=== PATIENT | male | born 1975 | race Caucasian/White ===

== ENCOUNTER 2018-02-16 08:11 | Emergency (ER) | payer OTHER ==
[~2018-02-16] VITALS: Ht 205.7 cm; Wt 141.1 kg
[2018-02-16 08:22] VITALS: BP 134/99
--- NOTE | 2018-02-16 08:25 | NUR ---
PT AMBULATES TO BED 2
--- NOTE | 2018-02-16 08:58 | NUR ---
DR ARIAS EVALUATING AT BEDSIDE
--- NOTE | 2018-02-16 09:02 | NUR ---
C/O LACERATION TO RIGHT AC. FULL THICKNESS WITH ADIPOSE TISSUE EXPOSED. CUT WHILE AT WORK LAST NIGHT ON A PIECE OF METAL. DENIES N/V/D; SKIN IS PINK/WARM/DRY; AAOX4 WITH EVEN AND STEADY GAIT; LUNGS CLEAR BL; HR EVEN AND REGULAR; PT DENIES ANY FEVER, CP, SOB, OR COUGH AT THIS TIME; PATIENT STATES PAIN OF 0/10 AT THIS TIME; VSS; PATIENT POSITIONED FOR COMFORT; HOB ELEVATED; BEDRAILS UP X2; BED DOWN. ER MD MADE AWARE OF PT STATUS.
[2018-02-16 09:18] VITALS: BP 134/85
--- NOTE | 2018-02-16 09:19 | NUR ---
Patient discharged with v/s stable. Written and verbal after care instructions given and explained. Patient verbalized understanding. Ambulatory with steady gait. All questions addressed prior to discharge. Advised to follow up with PMD.pT STATED HE WILL MAKE AN APPOINTMENT WITH PMD TODAY.
== END 2018-02-16 09:19 | disposition home or self-care (01) ==
LOC: MED 08:11
DX: S41.111A Laceration without foreign body of right upper arm, initial encounter (principal); Z88.0 Allergy status to penicillin; X58.XXXA Exposure to other specified factors, initial encounter; Y93.89 Activity, other specified; Y92.89 Other specified places as the place of occurrence of the external cause; Y99.8 Other external cause status
CPT/HCPCS: 90471; 90715; 99283

== ENCOUNTER 2019-02-05 19:02 | Emergency (ER) | payer OTHER ==
[~2019-02-05] VITALS: Ht 205.7 cm; Wt 141.1 kg
[2019-02-05 19:10] VITALS: BP 129/79
--- NOTE | 2019-02-05 19:10 | NUR ---
PT AMBULATED TO BED #3
--- NOTE | 2019-02-05 19:31 | NUR ---
Dr. Young examining patient.
--- NOTE | 2019-02-05 19:31 | NUR ---
44M c/o right arm pain and hand swelling x 1 month. Went to pcp and was on steriods. States injury to right hand at work a few months ago when he used hands to brace a fall. States lack of sensation to right hand 3rd digit. Unable to make a fist with right hand. States full ROM to right elbow. Radial pulses equal bilaterally. Swelling noted to right hand. No warmth or redness noted to right upper extremity. hx: right elbow bursitis allergy: penicillin
[2019-02-05 20:50] VITALS: BP 134/85
== END 2019-02-05 20:48 | disposition home or self-care (01) ==
LOC: MED 19:02
DX: M75.21 Bicipital tendinitis, right shoulder (principal); Z88.0 Allergy status to penicillin; Z98.890 Other specified postprocedural states
CPT/HCPCS: 72040; 73030; 99283

== ENCOUNTER 2022-09-08 17:23 | Emergency (ER) | payer OTHER ==
[~2022-09-08] VITALS: Ht 203.2 cm; Wt 147.1 kg
[2022-09-08 18:45] VITALS: BP 153/107
[2022-09-08] MEDS ORDERED: IBUP-2213 PO (19:45)
--- NOTE | 2022-09-08 20:30 | NUR ---
Called phone number , Patient will be back for D/C paper and CD.
[2022-09-08 20:51] VITALS: BP 125/85
== END 2022-09-08 20:51 | disposition home or self-care (01) ==
LOC: MED 17:23
DX: S67.191A Crushing injury of left index finger, initial encounter (principal); X58.XXXA Exposure to other specified factors, initial encounter; Y93.89 Activity, other specified; Y92.89 Other specified places as the place of occurrence of the external cause; Y99.8 Other external cause status
CPT/HCPCS: 73140; 99283